=== PATIENT | male | born 1980 | race American Indian/Alaskan Native ===

== ENCOUNTER 2021-10-10 18:27 | Emergency (ER) | payer OTHER ==
[2021-10-10] MEDS ORDERED: NITROGLYCERIN 0.4 MG TAB SUBL SL PRN (18:40)
[2021-10-10] MEDS ORDERED: ASPIRIN 81 MG TAB CHEW PO ONE (18:40)
--- NOTE | 2021-10-10 18:44 | Emergency Department Report ---
ED General Adult HPI - General Chief complaint: Chest Pain Stated complaint: CHEST PAIN Time Seen by Provider: 10/10/21 18:40 Source: patient Mode of arrival: Ambulatory Limitations: No Limitations - History of Present Illness Initial comments: Patient presents with chest pain. For the last week or so he has been having chest pain on the left side of his chest that radiates into his left arm. He states that this lasts for minutes at a time. The pain is sometimes exertional. Sometimes it occurs at rest. It is not consistent in either presentation. He states is an aching and heavy sensation. He does not feel short of breath. He is not diaphoretic. He has not been dizzy or lightheaded. There is no trauma associated with this. He came in for evaluation and treatment. He has never had cardiac history. There is no history of recent travel. There is no cough or congestion. There is no vomiting or diarrhea. Patient did not take anything for this prior to arrival. - Related Data Allergies Allergy/AdvReac Type Severity Reaction Status Date / Time No Known Allergies Allergy Unverified 11/10/15 10:52 ED Review of Systems ROS: Stated complaint: CHEST PAIN Other details as noted in HPI Comment: All other systems reviewed and negative Constitutional: denies: fever Eyes: denies: vision change ENT: denies: epistaxis Respiratory: see HPI Cardiovascular: as per HPI Endocrine: denies: unexplained weight loss Gastrointestinal: denies: abdominal pain Genitourinary: denies: dysuria Musculoskeletal: denies: back pain Skin: denies: rash Neurological: denies: headache Hematological/Lymphatic: denies: easy bruising ED Past Medical Hx - Past Medical History Previous Medical History?: No - Family History Family history: no significant ED Physical Exam - General Limitations: No Limitations, Other (Pulse ox noted and normal) General appearance: alert, in no apparent distress - Head Head exam: Present: atraumatic, normocephalic - Eye Eye exam: Present: normal appearance, EOMI - ENT ENT exam: Present: normal orophraynx, normal external ear exam - Neck Neck exam: Present: normal inspection. Absent: meningismus - Respiratory Respiratory exam: Present: normal lung sounds bilaterally. Absent: respiratory distress - Cardiovascular Cardiovascular Exam: Present: regular rate, normal rhythm - GI/Abdominal GI/Abdominal exam: Present: soft. Absent: tenderness - Extremities Exam Extremities exam: Present: normal capillary refill. Absent: calf tenderness - Back Exam Back exam: Absent: CVA tenderness (R), CVA tenderness (L) - Neurological Exam Neurological exam: Present: alert, oriented X3, CN II-XII intact, normal gait. Absent: motor sensory deficit - Psychiatric Psychiatric exam: Present: normal affect, normal mood - Skin Skin exam: Present: warm, dry ED Course - Reevaluation(s) Reevaluation #1: 10/10/21 18:44 IV, labs, and EKG were ordered. Reevaluation #2: 10/10/21 20:14 Labs of been noted. X-ray was noted. Patient was subsequently discharged. ED Medical Decision Making - Lab Data Result diagrams: 10/10/21 18:50 10/10/21 18:50 Rhythm strip: Normal sinus rhythm without ectopy per monitor observe 10 seconds. - EKG Data -: EKG Interpreted by Me - EKG Data 10/10/21 20:14 EKG shows a normal sinus rhythm with normal intervals. This includes QRS and QT corrected. There is no ST elevation to suggest infarct there is ST depression suggestive of ischemia. There is no old EKG for comparison. - Radiology Data Radiology results: report reviewed - Medical Decision Making Patient presents with chest pain of unclear etiology. It does not seem to be consistently exertional. He certainly does not have a change in EKG or troponin despite having a week worth of symptoms. There is no trauma that would suggest injury. He does not have pulse ox that suggestive of aortic dissection. Patient does not have a pleuritic component that would suggest pulmonary embolism and has no risk factor for PE. There is no adventitious breath sounds or fever present that would suggest pneumonia. He was treated symptomatically and referred for outpatient evaluation. Heart score is sufficiently low that would allow for outpatient treatment. Critical Care Time: No Critical care attestation.: If time is entered above; I have spent that time in minutes in the direct care of this critically ill patient, excluding procedure time. ED Disposition Clinical Impression: Left-sided chest pain Disposition: HOME / SELF CARE / HOMELESS Is pt being admited?: No Condition: Stable Instructions: Nonspecific Chest Pain, Adult, Pain Without a Known Cause Additional Instructions: Push fluids. Return for problems. Follow-up with your regular doctor and algorithm design engineer for recheck. Return for problems or concerns. Referrals: PRIMARY CARE, [Primary Care Provider] - 3-5 Days TRAVIS JOSHI MD [Staff Physician] - 3-5 Days DUSTIN GARZA MD [Staff Physician] - 3-5 Days
--- NOTE | 2021-10-10 19:04 | XRay Report ---
CHEST 2 VIEWS INDICATION / CLINICAL INFORMATION: cp. Chest pain FINDINGS: SUPPORT DEVICES: None. HEART / MEDIASTINUM: No significant abnormality. LUNGS / PLEURA: No significant pulmonary or pleural abnormality. No pneumothorax. ADDITIONAL FINDINGS: No significant additional findings. IMPRESSION: 1. No acute findings. Signer Name: Lorenzo Ward MD Signed: 10/10/2021 7:00 PM Workstation Name: [id number]
[2021-10-10 19:07] LABS: Hematocrit 42.7 % (35.5-45.6); Hemoglobin 13.9 gm/dl (11.8-15.2); Mean Corpuscular HGB Conc 33 % (32-34); Mean Corpuscular Volume 88 fl (84-94); Platelet Count 256 K/mm3 (140-440); Red Blood Count 4.84 M/mm3 (3.65-5.03); Red Cell Distribution Width 13.2 % (13.2-15.2)
[2021-10-10 19:21] LABS: BUN/Creatinine Ratio 12; Blood Urea Nitrogen 13 mg/dL (9-20); Calcium 9.7 mg/dL (8.4-10.2); Hemolysis Index 21
[2021-10-10 22:20] VITALS: BP 138/96
--- NOTE | 2021-10-11 13:20 | Electrocardiograph Report ---
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
== END 2021-10-10 21:39 | disposition home or self-care (01) ==
LOC: ED 18:27
DX: R07.89 Other chest pain (principal)
CPT/HCPCS: 36415; 71046; 80048; 84484; 85027; 93005; 99284